=== PATIENT | female | born 2000 | race Caucasian/White ===

== ENCOUNTER → 2024-01-19 17:10 | Outpatient (REF) | payer OTHER, SELFPAY | LOC: RAD 17:10 | PROVIDERS: ATTENDING PHYSICIAN Student in an Organized Health Care Education/Training Program; FAMILY PHYSICIAN Internal Medicine | DX: R10.2 Pelvic and perineal pain (principal) | CPT/HCPCS: 76830; 76856 ==

== ENCOUNTER 2025-05-23 14:27 | Outpatient (RCR) | payer OTHER, SELFPAY ==
[2025-05-23 14:42] VITALS: BP 135/85
[2025-05-23] MEDS: VENOFER 110 MG IV (14:53)
[2025-05-23 16:20] VITALS: BP 106/68
== END 2025-05-26 10:39 | disposition home or self-care (01) ==
LOC: OID 14:27
PROVIDERS: ATTENDING PHYSICIAN Nurse Practitioner
DX: D50.9 Iron deficiency anemia, unspecified (principal); T45.4X5A Adverse effect of iron and its compounds, initial encounter; Y93.89 Activity, other specified
CPT/HCPCS: 96365; J1756

== ENCOUNTER 2025-06-20 14:28 | Outpatient (RCR) | payer OTHER, SELFPAY ==
[2025-05-30 13:00] VITALS: BP 125/79
[2025-05-30] MEDS: VENOFER 110 MG IV (13:27)
[2025-06-05] MEDS: VENOFER 110 MG IV (14:44)
[2025-06-05 14:45] VITALS: BP 130/86
[2025-06-05 15:51] VITALS: BP 122/82
[2025-06-13] MEDS: VENOFER 110 MG IV (14:49)
[2025-06-13 15:01] VITALS: BP 113/70
[2025-06-13 16:18] VITALS: BP 103/62
[2025-06-20] MEDS: VENOFER 110 MG IV (14:56)
[2025-06-20 15:00] VITALS: BP 114/78
[2025-06-20 16:00] VITALS: BP 119/83
== END 2025-06-23 09:17 | disposition home or self-care (01) ==
LOC: OID 14:28
PROVIDERS: ATTENDING PHYSICIAN Nurse Practitioner
DX: D50.9 Iron deficiency anemia, unspecified (principal); T45.4X5A Adverse effect of iron and its compounds, initial encounter; Y93.89 Activity, other specified
CPT/HCPCS: 96365; J1756

== ENCOUNTER → 2025-10-20 13:54 | Outpatient (REF) | payer OTHER, SELFPAY | LOC: WDC 13:54 | PROVIDERS: ATTENDING PHYSICIAN Nurse Practitioner | DX: Z12.39 Encounter for other screening for malignant neoplasm of breast (principal); N63.41 Unspecified lump in right breast, subareolar; Z80.3 Family history of malignant neoplasm of breast | CPT/HCPCS: 76641 ==